=== PATIENT | female | born 1940 | race Caucasian/White ===

== ENCOUNTER → 2017-03-21 | Outpatient (CLI) | payer MEDICARE, BC ==
[~2017-03-21] MED LIST: AMIO200T7 PO; ASCO10007; ASPI-1009 PO; CARV3.12 PO; FURO40TA5 PO; GLUC1CAP25; OMEG300C; POTA10TA16 PO; RIVA20TA PO; SACU1TAB PO; SPIR25TA PO; no routine meds
--- NOTE | 2017-03-21 21:48 | ECHOF ---
DATE OF PROCEDURE March 21, 2017 This is a two-dimensional echo with spectral Doppler, color-flow and M-mode. It was obtained in a patient with mitral valve disease. Left atrium is dilated. Left ventricle end-diastolic dimension is normal. Left ventricular wall thickness is normal. LV systolic function is normal with ejection fraction of about 55%. Right atrium is dilated. Right ventricle is normal. Aortic root dimension is normal. Mitral annulus is calcified. Mitral valve leaflets are normal with mild mitral regurgitation. Aortic valve shows fibrocalcific changes with no stenosis. Trace of aortic insufficiency is present. Tricuspid valve shows mild tricuspid regurgitation with normal estimated pulmonary artery systolic pressure of 26. Pulmonary valve shows mild pulmonary insufficiency. There is no pericardial effusion. IMPRESSION 1. Biatrial dilation. 2. Mitral annulus calcification with mild mitral regurgitation. 3. Aortic sclerosis with trace of aortic insufficiency. 4. Mild tricuspid regurgitation with normal estimated pulmonary artery systolic pressure of 26. 5. Mild pulmonary insufficiency. 6. Normal LV systolic function with ejection fraction of 55%. MTDD
== END ==
LOC: IMA 13:32
PROVIDERS: ATTEND Internal Medicine Cardiovascular Disease
DX: I34.0 Nonrheumatic mitral (valve) insufficiency (principal); I08.3 Combined rheumatic disorders of mitral, aortic and tricuspid valves; I37.1 Nonrheumatic pulmonary valve insufficiency
CPT/HCPCS: 93306